=== PATIENT | female | born 1980 | race Caucasian/White ===

== ENCOUNTER 2016-10-26 08:38 | Emergency (ER) | payer MEDICAID ==
[~2016-10-26] VITALS: Ht 182.9 cm; Wt 86.7 kg
[2016-10-26 08:41] VITALS: BP 132/86
[2016-10-26] MEDS ORDERED: IBUPROFEN 200 MG TABLET ONE (09:30)
[2016-10-26] MEDS ORDERED: IBUPROFEN 200 MG TABLET PO ONE (09:30)
== END 2016-10-26 09:41 | disposition home or self-care (01) ==
LOC: ED 09:35
DX: L02.612 Cutaneous abscess of left foot (principal)
CPT/HCPCS: 99283

== ENCOUNTER 2017-04-16 10:40 | Emergency (ER) | payer MEDICAID ==
[~2017-04-16] VITALS: Ht 182.9 cm; Wt 82.6 kg
[2017-04-16 11:15] LABS: PATH.CAST-FLAG NOT PRESENT; SPERM-FLAG NOT PRESENT; SRC-FLAG NOT PRESENT; XTAL-FLAG NOT PRESENT; YLC-FLAG NOT PRESENT
[2017-04-16 11:49] VITALS: BP 128/87
== END 2017-04-16 11:52 | disposition home or self-care (01) ==
LOC: ED 11:46
DX: N30.01 Acute cystitis with hematuria (principal)
CPT/HCPCS: 81001; 87077; 87086; 87186; 99284

== ENCOUNTER 2017-05-02 23:07 | Emergency (ER) | payer MEDICAID ==
[~2017-05-02] VITALS: Ht 182.9 cm; Wt 80.8 kg
[2017-05-02 23:09] VITALS: BP 142/93
[2017-05-03 00:26] LABS: HCG UR SG 1.026 (1.003-1.030)
[2017-05-03 00:28] LABS: CULTURE INDICATED? YES; MICROSCOPIC INDICATED
[2017-05-03] MEDS ORDERED: ASCO1TAB15 PO (00:33)
[2017-05-03] MEDS ORDERED: CEFDINIR 300 MG CAPSULE ONE (01:00)
[2017-05-03] MEDS ORDERED: CEFDINIR 300 MG CAPSULE PO ONE (01:00)
== END 2017-05-03 01:13 | disposition home or self-care (01) ==
LOC: ED 23:59
DX: N30.00 Acute cystitis without hematuria (principal)
CPT/HCPCS: 81001; 81025; 87077; 87086; 87186; 99284

== ENCOUNTER 2017-05-12 08:02 | Emergency (ER) | payer MEDICAID ==
[~2017-05-12] VITALS: Ht 182.9 cm; Wt 80.5 kg
[~2017-05-12 08:02] MED LIST: ASCO1TAB15 PO
[2017-05-12] MEDS ORDERED: AZITHROMYCIN 500 MG TABLET PO ONE (09:00)
[2017-05-12] MEDS ORDERED: CEFTRIAXONE 250 MG IM ONE (09:00)
[2017-05-12 09:10] LABS: CLUE CELLS NONE SEEN (NONE SEEN); WET PREP WBCS MANY (FEW)
[2017-05-12] MEDS ORDERED: CEFTRIAXONE 250 MG ONE (09:14)
[2017-05-12] MEDS ORDERED: AZITHROMYCIN 500 MG TABLET ONE (09:14)
[2017-05-12 09:34] VITALS: BP 124/78
== END 2017-05-12 09:36 | disposition home or self-care (01) ==
LOC: ED 09:20
DX: A56.8 Sexually transmitted chlamydial infection of other sites (principal); B00.1 Herpesviral vesicular dermatitis
CPT/HCPCS: 87210; 87491; 87591; 87808; 96372; 99284; J0696

== ENCOUNTER 2017-06-03 07:29 | Emergency (ER) | payer MEDICAID, OTHER ==
[~2017-06-03] VITALS: Ht 182.9 cm; Wt 79.7 kg
[2017-06-03 07:30] VITALS: BP 114/75
[2017-06-03] MEDS ORDERED: FAMOTIDINE 20 MG/2 ML IVP ONE (08:00)
[2017-06-03] MEDS ORDERED: ONDANSETRON 2MG/ML, 2ML IVPush ONE (08:00)
[2017-06-03] MEDS ORDERED: SODIUM CHLORIDE 0.9% 1,000ML IVBOLUS ONE (08:00)
[2017-06-03 08:18] LABS: BASOPHILS # (AUTO) 0.01 x10^3/uL (0-0.1); BASOPHILS % (AUTO) 0 % (0-1); EOSINOPHILS # (AUTO) 0.09 x10^3/uL (0-0.4); EOSINOPHILS % (AUTO) 1 % (1-7); LYMPHOCYTES # (AUTO) 1.75 x10^3/uL (1-3.4); LYMPHOCYTES % (AUTO) 28 % (22-44); MD NO; MEAN CORPUSCULAR HEMOGLOBIN 31.9 pg (27.0-34.8); MEAN CORPUSCULAR HGB CONC 33.8 g/dL (32.4-35.8); MEAN CORPUSCULAR VOLUME 94.6 fL (80-100); MEAN PLATELET VOLUME 8.8 fL (7.4-10.4); MONOCYTES # (AUTO) 0.67 x10^3/uL (0.2-0.8); MONOCYTES % (AUTO) 11 % (2-9); NEUTROPHILS # (AUTO) 3.72 x10^3/uL (1.8-6.8); NEUTROPHILS % (AUTO) 60 % (42-75); PLATELET COUNT 228 x10^3/uL (130-400); RED BLOOD COUNT 4.72 x10^6/uL (3.82-5.3); RED CELL DISTRIBUTION WIDTH 14.4 % (9.6-15.2)
[2017-06-03 08:23] LABS: ALANINE AMINOTRANSFERASE 41 U/L (12-78); ALBUMIN 3.8 g/dL (3.4-5.0); ANION GAP 10 mmol/L (5-15); CHLORIDE 110 mmol/L (98-107); CREATININE 0.86 mg/dL (0.55-1.02)
[2017-06-03 08:28] LABS: ALKALINE PHOSPHATASE 54 U/L (45-117); BILIRUBIN,TOTAL 0.3 mg/dL (0.2-1.0); TOTAL PROTEIN 7.5 g/dL (6.4-8.2)
[2017-06-03] MEDS ORDERED: ONDANSETRON 2MG/ML, 2ML ONE (08:52)
[2017-06-03] MEDS ORDERED: FAMOTIDINE 20 MG/2 ML ONE (08:52)
[2017-06-03 09:40] LABS: CULTURE INDICATED? YES; MICROSCOPIC AUTO
[2017-06-03 09:44] LABS: CLOSTRIDIUM DIFFICILE ANTIGEN NEGATIVE; CLOSTRIDIUM DIFFICILE TOXIN NEGATIVE (Negative)
== END 2017-06-03 10:47 | disposition home or self-care (01) ==
LOC: ED 07:52
DX: K52.9 Noninfective gastroenteritis and colitis, unspecified (principal)
CPT/HCPCS: 36415; 80053; 81001; 83690; 84703; 85025; 87086; 87324; 89055; 96361; 96374; 96375; 99284; J2405; J7030; S0028

== ENCOUNTER 2017-09-21 12:08 | Emergency (ER) | payer SELFPAY ==
[~2017-09-21] VITALS: Ht 182.9 cm; Wt 80.0 kg
[2017-09-21 12:14] VITALS: BP 144/93
[2017-09-21 12:33] LABS: MICROSCOPIC AUTO
[2017-09-21 12:34] LABS: CULTURE INDICATED? YES
== END 2017-09-21 12:57 | disposition home or self-care (01) ==
LOC: ED 12:51
DX: N30.90 Cystitis, unspecified without hematuria (principal); F17.200 Nicotine dependence, unspecified, uncomplicated
CPT/HCPCS: 81001; 87077; 87086; 87186; 99284

== ENCOUNTER 2017-12-04 14:39 | Emergency (ER) | payer SELFPAY ==
[~2017-12-04] VITALS: Ht 182.9 cm; Wt 76.2 kg
[2017-12-04 14:58] VITALS: BP 144/93
[2017-12-04 15:48] LABS: MICROSCOPIC INDICATED
[2017-12-04 16:05] LABS: HCG UR SG > 1.045 (1.003-1.030)
== END 2017-12-04 16:50 | disposition home or self-care (01) ==
LOC: ED 16:30
DX: N30.00 Acute cystitis without hematuria (principal); F17.200 Nicotine dependence, unspecified, uncomplicated
CPT/HCPCS: 81001; 81025; 99284

== ENCOUNTER 2018-07-16 20:40 | Emergency (ER) | payer SELFPAY ==
[~2018-07-16] VITALS: Ht 182.9 cm; Wt 72.8 kg
[~2018-07-16 20:40] MED LIST changes: +TRAZ50TA66 PO
[2018-07-16 20:50] VITALS: BP 147/82
--- NOTE | 2018-07-16 21:27 | NUR ---
CLEAN CATCH URINE SENT AT 2123
[2018-07-16] MEDS ORDERED: PUMP300C PO (21:32)
[2018-07-16 21:52] LABS: HCG UR SG 1.007 (1.003-1.030)
[2018-07-16 21:54] LABS: MICROSCOPIC INDICATED
[2018-07-16 21:55] LABS: CULTURE INDICATED? YES
[2018-07-16] MEDS ORDERED: PHENAZOPYRIDINE 200 MG TABLET PO ONE (22:00)
[2018-07-16] MEDS ORDERED: PHENAZOPYRIDINE 200 MG TABLET ONE (22:02)
--- NOTE | 2018-07-16 22:10 | NUR ---
Bedside SBAR report received from [facility]. Pt sitting on toilet, family at pt's side.
--- NOTE | 2018-07-16 22:45 | NUR ---
Pt did not want to have vitals rechecked as she was sitting on the toilet.
--- NOTE | 2018-07-16 22:46 | NUR ---
Patient/Caregiver given discharge instructions and they have confirmed that they understand the instructions. Patient ambulatory with steady gait.
== END 2018-07-16 22:53 | disposition home or self-care (01) ==
LOC: ED 21:16
DX: N30.01 Acute cystitis with hematuria (principal); Z87.19 Personal history of other diseases of the digestive system
CPT/HCPCS: 81001; 81025; 87077; 87086; 87186; 99283

== ENCOUNTER 2020-03-10 08:01 | Emergency (ER) | payer OTHER ==
[~2020-03-10] VITALS: Ht 182.9 cm; Wt 69.5 kg
[~2020-03-10 08:01] MED LIST changes: +PUMP300C PO
[2020-03-10 08:05] VITALS: BP 126/81
--- NOTE | 2020-03-10 08:24 | NUR ---
PT HAS CO UTI SYMPTOMS. UA SENT
[2020-03-10] MEDS ORDERED: PHENAZOPYRIDINE 200 MG TABLET PO ONE (08:30)
[2020-03-10 08:33] LABS: MICROSCOPIC INDICATED
--- NOTE | 2020-03-10 09:15 | NUR ---
Patient/Caregiver given discharge instructions and they have confirmed that they understand the instructions. Patient ambulatory with steady gait.
== END 2020-03-10 09:16 | disposition home or self-care (01) ==
LOC: ED 08:29
DX: R30.0 Dysuria (principal); R39.15 Urgency of urination
CPT/HCPCS: 81001; 81025; 87077; 87086; 87186; 99283